=== PATIENT | female | born 1950 | race Caucasian/White ===

== ENCOUNTER 2024-01-12 10:39 | Emergency (ER) | payer MEDICARE, OTHER ==
[~2024-01-12] VITALS: Ht 160 cm; Wt 83.0 kg
[~2024-01-12 10:39] MED LIST: ACETAMINOPHEN500 MG PO; AMLODIPINE BESY10 MG PO; AMLODIPINE BESYL5 MG PO; ATORVASTATIN CA40 MG PO; BENZONATATE100 MG PO; BUPROPION HCL100 MG PO; DIPHENHYDRAMINE25 M2 PO; FLUTICASONE PRO16 GM NAS; FUROSEMIDE20 MG PO; GABAPENTIN300 MG PO; LISINOPRIL10 MG PO; NABUMETONE500 MG PO; NYSTATIN15 G2 TOP; OMEPRAZOLE40 MG PO; OXYBUTYNIN CHLOR5 MG PO; PREDNISONE10 MG PO; RISPERIDONE2 MG PO; RISPERIDONE3 MG PO; TRELEGY ELLIPT1 EACH PO; VENTOLIN HFA18 GM INH; VITAMIN C500 M1 PO; VITAMIN D325 MCG PO; WARFARIN SODIUM4 MG PO; ZANAFLEX4 MG PO; ZINC SULFATE50 MG PO
[2024-01-12 11:17] LABS: BASOPHILS 0.7 % (0-2); EOSINOPHILS 1.4 % (0-6); HEMATOCRIT 40.1 % (35.0-50.0); HEMOGLOBIN 13.6 g/dL (12.0-18.0); LYMPHOCYTES 13.2 % (24-44); MCH 31.5 (27-36); MCHC 33.8 g/dl (30-36); MCV 93.3 fl (81-99); MONOCYTES 9.9 % (0-12); NEUTROPHILS 74.8 % (39-80); PLATELET COUNT 176 K/uL (140-440); RDW 13.3 (10.5-15.0)
[2024-01-12 11:27] LABS: INR 1.97 (0.80-1.30); PROTIME 21.5 Sec (11.2-14.2)
[2024-01-12 11:40] LABS: ALBUMIN 3.5 g/dL (3.4-5.0); ALBUMIN/GLOBULIN RATIO 1.13 (1.1-2.4); ANION GAP 11.3 (7-21); BILIRUBIN, TOTAL 0.5 ng/dL (0.2-1.0); BUN/CREATININE RATIO 18.81 (6.0-28.6); CREATININE, SERUM 1.01 mg/dL (0.55-1.02); MAGNESIUM 1.7 mg/dL (1.8-2.4); POTASSIUM 4.3 mmol/L (3.5-5.1); PROTEIN, TOTAL 6.6 g/dL (6.4-8.2)
[2024-01-12 12:21] VITALS: BP 132/74
--- NOTE | 2024-01-12 13:18 | EKG ---
[facility] [address] [facility] [place], [place] [address] Signed Normal sinus rhythm Inferior infarct , age undetermined Cannot rule out Anterior infarct , age undetermined Abnormal ECG No previous ECGs available Confirmed by Clemente Doe MD ([id number]) on 01/12/2024 1:18:04 PM Electronically Signed By: CLEMENTE DOE DO 01/12/24 1318 PATIENT NAME: SATISH FORD Electrocardiogram DATE OF : 52 PHYSICIAN: CLEMENTE DOE DO REPORT #: [id number] REPORT IS CONFIDENTIAL AND NOT TO BE RELEASED WITHOUT AUTHORIZATION
== END 2024-01-12 12:21 | disposition home or self-care (01) ==
LOC: ED 10:39
PROVIDERS: Emergency Medicine
DX: R07.89 Other chest pain (principal); J44.9 Chronic obstructive pulmonary disease, unspecified; I50.9 Heart failure, unspecified; K21.9 Gastro-esophageal reflux disease without esophagitis; Z86.73 Personal history of transient ischemic attack (TIA), and cerebral infarction without residual deficits; Z88.5 Allergy status to narcotic agent; Z79.899 Other long term (current) drug therapy; Z79.01 Long term (current) use of anticoagulants
CPT/HCPCS: 36415; 71045; 80053; 83735; 83880; 84484; 85025; 85610; 93005; 93010; 99285-25

== ENCOUNTER 2024-03-09 10:41 | Emergency (ER) | payer MEDICARE, OTHER ==
[~2024-03-09] VITALS: Ht 160 cm; Wt 84.0 kg
[2024-03-09] MEDS ORDERED: methylPREDNISolone SOD SUCC 125 MG/2 ML VIAL IV ONE (12:00)
[2024-03-09] MEDS ORDERED: ALBUTEROL/IPRATROPIUM 3 ML NEB INH ONE ×2 (12:00→13:15)
[2024-03-09 12:19] LABS: BASOPHILS 0.6 % (0-2); EOSINOPHILS 2.3 % (0-6); HEMATOCRIT 36.7 % (35.0-50.0); HEMOGLOBIN 12.5 g/dL (12.0-18.0); LYMPHOCYTES 15.9 % (24-44); MCH 31.9 (27-36); MCHC 34.2 g/dl (30-36); MCV 93.3 fl (81-99); MONOCYTES 11.4 % (0-12); NEUTROPHILS 69.8 % (39-80); PLATELET COUNT 190 K/uL (140-440); RBC 3.93 M/ul (4.3-5.7); RDW 13.6 (10.5-15.0)
[2024-03-09 12:35] LABS: ALBUMIN 3.2 g/dL (3.4-5.0); ANION GAP 9.3 (7-21); BILIRUBIN, TOTAL 0.5 ng/dL (0.2-1.0); BUN/CREATININE RATIO 13.72 (6.0-28.6); CALCIUM 9.5 mg/dL (8.5-10.1); CREATININE, SERUM 1.02 mg/dL (0.55-1.02); POTASSIUM 4.3 mmol/L (3.5-5.1); PROTEIN, TOTAL 6.4 g/dL (6.4-8.2)
[2024-03-09 12:39] LABS: INFLUENZA B NAA NEGATIVE (NEGATIVE); RESPIRATORY SYNCYTIAL VIR NAA NEGATIVE (NEGATIVE)
[2024-03-09] MEDS ORDERED: DOXYCYCLINE HYCLATE 100 MG CAP PO ONE (13:30)
[2024-03-09] MEDS ORDERED: CEFDINIR 300 MG CAP PO ONE (13:30)
[2024-03-09] MEDS ORDERED: CEFDINIR300 MG PO (14:28)
[2024-03-09] MEDS ORDERED: PREDNISONE20 MG PO (14:28)
[2024-03-09] MEDS ORDERED: BENZONATATE200 MG PO (14:28)
[2024-03-09] MEDS ORDERED: DOXYCYCLINE HY100 MG PO (14:28)
[2024-03-09 14:40] VITALS: BP 135/57
--- NOTE | 2024-03-10 20:59 | EKG ---
[facility] [address] [facility] [place], [place] [address] Signed Normal sinus rhythm Normal ECG No previous ECGs available Confirmed by Pedro Doe MD ([id number]) on 03/10/2024 8:59:42 PM Electronically Signed By: PEDRO DOE DO 03/10/242058 PATIENT NAME: LILIANASATISH M Electrocardiogram DATE OF : 52 PHYSICIAN: PEDRO DOE DO REPORT #: [id number] REPORT IS CONFIDENTIAL AND NOT TO BE RELEASED WITHOUT AUTHORIZATION
== END 2024-03-09 14:40 | disposition home or self-care (01) ==
LOC: ED 10:41
PROVIDERS: Emergency Medicine
DX: J44.1 Chronic obstructive pulmonary disease with (acute) exacerbation (principal); J44.0 Chronic obstructive pulmonary disease with (acute) lower respiratory infection; J18.9 Pneumonia, unspecified organism; K21.9 Gastro-esophageal reflux disease without esophagitis; Z86.73 Personal history of transient ischemic attack (TIA), and cerebral infarction without residual deficits; Z88.5 Allergy status to narcotic agent; Z79.01 Long term (current) use of anticoagulants; Z79.51 Long term (current) use of inhaled steroids; Z79.899 Other long term (current) drug therapy
CPT/HCPCS: 36415; 71046; 80053; 83880; 84484; 85025; 87502; 93005; 93010; 94640; 96374; 99285-25; J2919; U0002

== ENCOUNTER 2025-03-08 11:36 | Emergency (ER) | payer MEDICARE, OTHER ==
[~2025-03-08 11:36] MED LIST changes: +BENZONATATE200 MG PO; +CEFDINIR300 MG PO; +DOXYCYCLINE HY100 MG PO; +PREDNISONE20 MG PO
[2025-03-08] MEDS ORDERED: ALBUTEROL/IPRATROPIUM 3 ML NEB INH ONE ×3 (12:00)
[2025-03-08 12:07] LABS: BASOPHILS 0.6 % (0.1-1.2); EOSINOPHILS 0.6 % (0.7-5.8); LYMPHOCYTES 11.7 % (19.3-51.7); MCH 30.1 PG (25.6-32.2); MCHC 31.2 g/dL (32.2-35.5); MCV 96.2 fL (79.4-94.8); MONOCYTES 16.6 % (4.7-12.5); NEUTROPHILS 69.5 % (34.0-71.1); RBC 3.96 M/uL (3.93-5.22)
[2025-03-08 12:30] LABS: ALT (SGPT) 14.0 U/L (14-59); AST (SGOT) 19.0 U/L (15-37); GLOMERULAR FILTRATION RATE,EST 45.0 mL/min (>60); PROTEIN, TOTAL 6.6 g/dL (6.4-8.2); UREA NITROGEN 21.0 mg/dL (7-18)
[2025-03-08 12:40] LABS: CORONAVIRUS COVID-19 AG NEGATIVE (NEGATIVE)
[2025-03-08] MEDS ORDERED: TAMIFLU75 MG PO (14:08)
[2025-03-08] MEDS ORDERED: BENZONATATE200 MG PO (14:08)
[2025-03-08] MEDS ORDERED: PREDNISONE20 MG PO (14:08)
[2025-03-08 14:23] VITALS: BP 118/55
--- NOTE | 2025-03-13 22:05 | EKG ---
[facility] [address] [facility] [place] [address] Signed Normal sinus rhythm Cannot rule out Inferior infarct , age undetermined Abnormal ECG When compared with ECG of 09-MAR-2024 12:28, No significant change was found Confirmed by Fabiola Butt MD () on 03/13/2025 10:05:25 PM Electronically Signed By: FABIOLA BUTT MD 03/13/252204 PATIENT NAME: SATISH FORD Electrocardiogram DATE OF : 52 PHYSICIAN: FABIOLA BUTT MD REPORT #: [id number] REPORT IS CONFIDENTIAL AND NOT TO BE RELEASED WITHOUT AUTHORIZATION
== END 2025-03-08 14:25 | disposition home or self-care (01) ==
LOC: ED 11:36
PROVIDERS: Emergency Medicine
DX: J44.1 Chronic obstructive pulmonary disease with (acute) exacerbation (principal); K21.9 Gastro-esophageal reflux disease without esophagitis; Z88.5 Allergy status to narcotic agent
CPT/HCPCS: 36415; 71045; 80053; 85025; 93005; 93010; 94640; 96374; 99285-25; J2919

== ENCOUNTER 2025-03-17 10:09 | Emergency (ER) | payer MEDICARE, OTHER ==
[~2025-03-17] VITALS: Ht 160 cm; Wt 90.0 kg
[~2025-03-17 10:09] MED LIST changes: +TAMIFLU75 MG PO
--- OUTSIDE RECORDS SUMMARY | 2025-03-17 10:15 | XMS ---
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 Events currently on file CRITERIA MET - [facility] - 2 Visits in 30 Days CARE PROVIDERS -[facility] Dentist: Chiropractic Physician [facility] PHONE: [phone] - [place]- Dentist: Chiropractic Physician [facility] PHONE: [phone] YAS WOOD Nurse Practitioner: Family Current PHONE: [phone] [facility]: Multi-Specialty [facility] FAMILY PHONE: Unknown DAVE KITCHEN Physician Credit Underwriter Preethi URBINAIE PHONE: [phone] CJ ESPAÑA Nurse Practitioner: Adult Health Preethi PAULETTE PHONE: [phone] [employer]/[place] 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 EKatharina VISIT COUNT (12 MO.) 3 LUKE Lux TOTAL 3 NOTE: Visits indicate total known visits. ED/UCC VISIT TRACKING (12 MO.) 03/17/2025 10:[address] [facility] [place] TYPE: Emergency COMPLAINT: - SHORTNESS OF BREATH 03/16/2025 13:29 [facility] [place] TYPE: Emergency COMPLAINT: - WEAKNESS 03/08/2025 11:[address] [facility] [place] TYPE: Emergency COMPLAINT: - COUGH/CONGESTION DIAGNOSES: - Allergy status to narcotic agent - Chronic obstructive pulmonary disease with (acute) exacerbation - Gastro-esophageal reflux disease without esophagitis - Shortness of breath INPATIENT VISIT TRACKING (12 MO.) No inpatient visits to display in this time frame [email or web address]
[2025-03-17 10:38] LABS: BASOPHILS 0.1 % (0.1-1.2); EOSINOPHILS 0 % (0.7-5.8); LYMPHOCYTES 3.8 % (19.3-51.7); MCH 30.5 PG (25.6-32.2); MCHC 32.4 g/dL (32.2-35.5); MCV 94.2 fL (79.4-94.8); MONOCYTES 3.8 % (4.7-12.5); NEUTROPHILS 89.9 % (34.0-71.1); RBC 3.64 M/uL (3.93-5.22)
[2025-03-17] MEDS ORDERED: ALBUTEROL/IPRATROPIUM 3 ML NEB INH ONE (10:45)
[2025-03-17] MEDS ORDERED: predniSONE 20 MG TAB PO ONE (10:45)
[2025-03-17 10:55] LABS: GLOMERULAR FILTRATION RATE,EST 57.0 mL/min (>60); UREA NITROGEN 23.0 mg/dL (7-18)
[2025-03-17 11:17] LABS: LACTIC ACID, BLOOD 0.5 mmol/L (0.4-2.0)
[2025-03-17] MEDS ORDERED: ARTHRITIS PAIN50 GM TP (15:41)
[2025-03-17] MEDS ORDERED: OXYBUTYNIN CHLOR5 M1 PO (15:44)
[2025-03-17] MEDS ORDERED: TURMERIC500 M2 (15:45)
[2025-03-17 16:11] VITALS: BP 116/73
[2025-03-21] MEDS ORDERED: ELIQUIS5 MG PO (10:32)
[2025-03-21] MEDS ORDERED: LINEZOLID600 MG PO (10:32)
[2025-03-21] MEDS ORDERED: CEFPODOXIME PR200 MG PO (10:33)
[2025-03-21] MEDS ORDERED: PROBICHEW 21 B1 EACH PO (10:34)
[2025-03-21] MEDS ORDERED: ROBITUSSIN30 MG/5 ML PO (10:37)
[2025-03-30] MEDS ORDERED: METOPROLOL SUCC25 MG PO (14:13)
[2025-03-30] MEDS ORDERED: TRELEGY ELLIPT1 EACH INH (14:16)
== END 2025-03-17 16:13 | disposition home or self-care (01) ==
LOC: ED 10:09
PROVIDERS: Emergency Medicine
DX: J44.0 Chronic obstructive pulmonary disease with (acute) lower respiratory infection (principal); J18.9 Pneumonia, unspecified organism; K21.9 Gastro-esophageal reflux disease without esophagitis; Z88.5 Allergy status to narcotic agent; Z79.899 Other long term (current) drug therapy
CPT/HCPCS: 36415; 80048; 83605; 85025; 94640; 99285; J7512